=== PATIENT | male | born 1975 | race Caucasian/White ===

== ENCOUNTER → 2020-02-14 | Outpatient (CLI) | payer BC ==
--- NOTE | 2020-02-14 12:55 | Diagnostic Imaging Report ---
INDICATION: Right-sided shoulder pain. TECHNIQUE: 2 views of the right shoulder CORRELATION STUDY: None FINDINGS: The glenohumeral and acromioclavicular alignment are maintained and unremarkable. There is no evidence for acute fracture or dislocation. 18 x 11 mm rectangular shaped density over the T1 level to the right of midline is present of unknown location or significance. IMPRESSION: 1. Negative for acute bony abnormality about the shoulder. Dictated by: Dictated on workstation # [id number]
== END ==
LOC: RAD FS 12:29
PROVIDERS: ATTEND Nurse Practitioner
DX: M25.511 Pain in right shoulder (principal)
CPT/HCPCS: 73030

== ENCOUNTER → 2020-02-20 | Outpatient (CLI) | payer BC ==
--- NOTE | 2020-02-20 12:06 | Diagnostic Imaging Report ---
PROCEDURE: CT thoracic spine without contrast. TECHNIQUE: Multiple axial computerized tomography images were obtained from the base of the thoracic spine to the vertex without intravenous contrast. Auto Exposure Controls were utilized during the CT exam to meet ALARA standards for radiation dose reduction. INDICATION: Abnormal radiographs of the thoracic spine. COMPARISON: None available. FINDINGS: Normal kyphosis of the thoracic spine. Vertebral bodies are normal in stature without compression deformity or ankylosis. There are Schmorl's node deformities involving the inferior endplate at T7, T11, and T12. No ankylosis of the posterior elements. The posterior elements are intact. The visualized portions of the ribs are normal. No high-grade spinal canal narrowing. Small central disc protrusion at T6-T7 causes no more than mild spinal stenosis and does not appear to have mass effect on the thoracic cord. Incidental note of a 2 mm nonobstructing stone in the upper pole of the left kidney. The lungs are clear with exception of moderate paraseptal emphysema. IMPRESSION: 1. No acute osseous abnormality in the thoracic spine. 2. Mild degenerative disc disease is greatest at T6-T7 where there is a small central disc perfusion that causes no more than mild spinal stenosis. 3. Moderate paraseptal emphysema is incidentally noted. Dictated by: Dictated on workstation # [id number]
== END ==
LOC: RAD FS 09:05
PROVIDERS: ATTEND Nurse Practitioner
DX: M51.34 Other intervertebral disc degeneration, thoracic region (principal); M51.24 Other intervertebral disc displacement, thoracic region; M48.04 Spinal stenosis, thoracic region
CPT/HCPCS: 72128